=== PATIENT | female | born 1985 | race Caucasian/White ===

== ENCOUNTER 2024-06-10 02:26 | Emergency (ER) | payer MEDICAID ==
[~2024-06-10] VITALS: Ht 152.4 cm; Wt 76.9 kg
[2024-06-10 02:59] VITALS: BP 139/79; PULSE 103; RESP 18; TEMP 98.4; O2SAT 99
[2024-06-10] MEDS ORDERED: CEPH500T MT (03:29)
[2024-06-10] MEDS ORDERED: NAPR-1176 MT (03:29)
== END 2024-06-10 03:38 | disposition home or self-care (01) ==
LOC: ER 02:26
DX: T81.41XA Infection following a procedure, superficial incisional surgical site, initial encounter (principal); X58.XXXA Exposure to other specified factors, initial encounter; Y93.89 Activity, other specified; Y92.89 Other specified places as the place of occurrence of the external cause; Y99.8 Other external cause status
CPT/HCPCS: 99283